=== PATIENT | female | born 1985 | race Caucasian/White ===

== ENCOUNTER 2017-02-25 15:14 | Observation (INO) | payer MEDICAID ==
[2017-02-25 15:56] LABS: URINE BILIRUBIN NEGATIVE (NEG); URINE BLOOD LARGE (NEG); URINE GLUCOSE (UA) NEGATIVE (NEG); URINE KETONE NEGATIVE (NEG); URINE LEUKOCYTE ESTERASE POSITIVE (NEG); URINE NITRITE NEGATIVE (NEG); URINE PROTEIN SMALL (NEG)
[2017-02-25 15:57] LABS: URINE APPEARANCE CLEAR; URINE COLOR YELLOW
[2017-02-25 16:06] LABS: URINE BACTERIA 2+; URINE RBC 15-20 /[HPF] (0-5)
== END 2017-02-25 17:36 ==
LOC: LDR 15:14
PROVIDERS: ADMIT Advanced Practice Midwife
DX: O60.03 Preterm labor without delivery, third trimester (principal); Z3A.34 34 weeks gestation of pregnancy

== ENCOUNTER 2017-03-23 18:42 | Observation (INO) | payer MEDICAID ==
[2017-03-23] MEDS ORDERED: PRENA1 CHEW TA1.4 M1 PO (19:11)
== END 2017-03-23 20:50 ==
LOC: LDR 18:42
PROVIDERS: ADMIT Advanced Practice Midwife
DX: O47.1 False labor at or after 37 completed weeks of gestation (principal); Z3A.38 38 weeks gestation of pregnancy; Z79.899 Other long term (current) drug therapy; Z98.890 Other specified postprocedural states

== ENCOUNTER 2017-03-25 13:22 | Observation (INO) | payer MEDICAID ==
[~2017-03-25 13:22] MED LIST: PRENA1 CHEW TA1.4 M1 PO
[2017-03-25] MEDS ORDERED: VISTARIL25 M1 PO (13:33)
== END 2017-03-25 16:15 ==
LOC: LDR 13:22
PROVIDERS: ADMIT Advanced Practice Midwife
DX: O47.1 False labor at or after 37 completed weeks of gestation (principal); Z3A.38 38 weeks gestation of pregnancy; Z79.899 Other long term (current) drug therapy; Z98.890 Other specified postprocedural states

== ENCOUNTER 2017-03-27 20:23 | Inpatient (IN) | payer MEDICAID ==
[~2017-03-27 20:23] MED LIST changes: +VISTARIL25 M1 PO
[2017-03-29 07:03] LABS: BASO % 0.3 % (0-2); EOS % 2.2 % (0-7); EOSINOPHIL ABSOLUTE COUNT 0.2 tho/cmm (0.0-0.7); HCT-HEMATOCRIT 39.2 % (34.0-49.0); HGB-HEMOGLOBIN 13.2 gm/dl (12.0-15.5); IMMATURE GRANULOCYTES ABSOLUTE 0.05 tho/cmm (0-0.03); IMMATURE GRANULOCYTES PERCENT 0.5 % (0-0.3); LYMPH % 26.5 % (20-45); LYMPH ABSOLUTE COUNT 2.6 tho/cmm (0.8-4.5); MCH (MEAN CORPUSCULAR HGB) 29.3 pg (28.0-32.0); MCHC MEAN CORPUSCULAR HGB CONC 33.7 % (32.0-36.0); MCV (MEAN CELL VOLUME) 86.9 fl (82.0-96.0); MEAN PLATELET VOLUME 10.1 cmc (9.4-12.4); MONO % 7.1 % (0-12); MONOCYTE ABSOLUTE COUNT 0.7 tho/cmm (0.0-1.2); NEUTROPHIL ABSOLUTE COUNT 6.2 tho/cmm (1.6-8.0); NEUTROPHIL-AUTOMATED 6.2 tho/cmm (1.6-8.0); NEUTROPHILS % 63.4 % (40-80); PLATELET COUNT 212 tho/cmm (150-450); RED BLOOD COUNT 4.51 mil/cmm (4.00-5.20); RED CELL DISTRIBUTION WIDTH 14.4 % (12.4-16.4); WHITE BLOOD COUNT 9.8 tho/cmm (4.0-10.0)
[2017-03-29] MEDS ORDERED: NORCO 5-325 TA1 EACH PO (10:57)
== END 2017-03-29 15:00 | DRG 775 ==
LOC: LDR 20:23 → OBGE 03-28 05:36
PROVIDERS: ADMIT Advanced Practice Midwife
PROC: 10907ZC Drainage of Amniotic Fluid, Therapeutic from Products of Conception, Via Natural or Artificial Opening (ICD-10-PCS; 2017-03-27)
PROC: 3E033VJ Introduction of Other Hormone into Peripheral Vein, Percutaneous Approach (ICD-10-PCS; 2017-03-27)
PROC: 10E0XZZ Delivery of Products of Conception, External Approach (ICD-10-PCS; principal; 2017-03-28)
DX: O71.4 Obstetric high vaginal laceration alone (principal); O69.81X0 Labor and delivery complicated by cord around neck, without compression, not applicable or unspecified; Z37.0 Single live birth; Z3A.39 39 weeks gestation of pregnancy
CPT/HCPCS: J2370; J2590; J2791